=== PATIENT | male | born 1950 | race American Indian/Alaskan Native ===

== ENCOUNTER 2019-09-24 08:52 | Emergency (ER) | payer MEDICARE ==
[2019-09-24 09:08] VITALS: BP 144/95
--- NOTE | 2019-09-24 09:26 | XRay Report ---
CHEST 1 VIEW INDICATION / CLINICAL INFORMATION: MAIN: Chest Pain TODAY, HX COPD. COMPARISON: 05/12/2014 FINDINGS: SUPPORT DEVICES: None. HEART / MEDIASTINUM: No significant abnormality. LUNGS / PLEURA: No significant pulmonary or pleural abnormality. No pneumothorax. ADDITIONAL FINDINGS: No significant additional findings. IMPRESSION: 1. No significant change Signer Name: Chalino Hammond MD Signed: 09/24/2019 9:21 AM Workstation Name: [id number]
[2019-09-24 10:59] LABS: Basophils % (Auto) 0.7 % (0.0-1.8); Eosinophils # (Auto) 0.3 K/mm3 (0.0-0.4); Eosinophils % (Auto) 7.9 % (0.0-4.3); Hematocrit 47.3 % (35.5-45.6); Hemoglobin 16.1 gm/dl (11.8-15.2); Lymphocytes # (Auto) 0.8 K/mm3 (1.2-5.4); Lymphocytes % (Auto) 18.9 % (13.4-35.0); Mean Corpuscular HGB Conc 34 % (32-34); Mean Corpuscular Volume 94 fl (84-94); Monocytes # (Auto) 0.7 K/mm3 (0.0-0.8); Monocytes % (Auto) 15.1 % (0.0-7.3); Platelet Count 218 K/mm3 (140-440); Red Blood Count 5.01 M/mm3 (3.65-5.03)
[2019-09-24 11:24] LABS: BUN/Creatinine Ratio 10; Blood Urea Nitrogen 10 mg/dL (9-20); Calcium 9.8 mg/dL (8.4-10.2); Hemolysis Index 23
--- NOTE | 2019-09-24 11:36 | Emergency Department Report ---
ED Chest Pain HPI - General Chief Complaint: Chest Pain Stated Complaint: CP/HIV POS Time Seen by Provider: 09/24/19 11:29 Source: patient Mode of arrival: Ambulatory Limitations: No Limitations - History of Present Illness Initial Comments: Mr. Griggs is a 69-year-old male with history of HIV who presents with chest tightness since this morning. Chest tightness is mild without any radiation. Stephen like indigestion. Denies fever. Denies shortness of breath. No previous history of hypertension or heart disease. Chest pain has with spontaneously resolved. MD Complaint: chest pain -: Gradual, This morning Onset: during rest Pain Location: substernal Pain Radiation: none Severity: mild Quality: tightness Consistency: now resolved Improves With: nothing Worsens With: nothing - Related Data Previous Rx's Medication Instructions Recorded Last Taken Type Acetaminophen with Codeine 1 each PO Q8HR PRN #10 tablet 05/12/14 Unknown Rx [Acetaminophen-Codeine #4 TAB] levoFLOXacin [Levaquin TAB] 750 mg PO QDAY #4 tablet 05/12/14 Unknown Rx Allergies Allergy/AdvReac Type Severity Reaction Status Date / Time Penicillins Allergy Unknown Verified 05/12/14 11:20 sulfamethoxazole Allergy Unknown Verified 05/12/14 11:20 [From Bactrim] trimethoprim [From Bactrim] Allergy Unknown Verified 05/12/14 11:20 Heart Score - HEART Score History: Slightly suspicious EKG: Non-specific Age: > 65 Risk factors: 1-2 risk factors Troponin: < normal limit HEART Score: 4 ED Review of Systems ROS: Stated complaint: CP/HIV POS Other details as noted in HPI Comment: All other systems reviewed and negative Constitutional: denies: fever, malaise Respiratory: denies: cough, shortness of breath Cardiovascular: chest pain ED Past Medical Hx - Past Medical History Previous Medical History?: No Hx HIV: Yes - Surgical History Past Surgical History?: Yes Additional Surgical History: abdominal surgery - Social History Smoking Status: Current Every Day Smoker Substance Use Type: Alcohol, Marijuana - Medications Home Medications: Home Medications Medication Instructions Recorded Confirmed Last Taken Type Acetaminophen with Codeine 1 each PO Q8HR PRN #10 tablet 05/12/14 Unknown Rx [Acetaminophen-Codeine #4 TAB] levoFLOXacin [Levaquin TAB] 750 mg PO QDAY #4 tablet 05/12/14 Unknown Rx ED Physical Exam - General Limitations: No Limitations General appearance: alert, in no apparent distress - Head Head exam: Present: atraumatic, normocephalic - Eye Eye exam: Present: normal appearance - ENT ENT exam: Present: mucous membranes moist - Neck Neck exam: Present: normal inspection, full ROM - Respiratory Respiratory exam: Present: normal lung sounds bilaterally. Absent: respiratory distress, wheezes, rales, rhonchi - Cardiovascular Cardiovascular Exam: Present: regular rate, normal rhythm, normal heart sounds. Absent: systolic murmur, diastolic murmur, rubs, gallop - GI/Abdominal GI/Abdominal exam: Present: soft, normal bowel sounds. Absent: distended, tenderness, guarding, rebound - Rectal Rectal exam: Present: deferred - Extremities Exam Extremities exam: Present: normal inspection - Back Exam Back exam: Present: normal inspection - Neurological Exam Neurological exam: Present: alert, oriented X3 - Psychiatric Psychiatric exam: Present: normal affect, normal mood - Skin Skin exam: Present: warm, dry, intact, normal color. Absent: rash ED Course Vital Signs 09/24/19 09:05 Temperature 97.9 F Pulse Rate 78 Respiratory 20 Rate Blood Pressure 144/95 O2 Sat by Pulse 95 Oximetry ED Medical Decision Making - Lab Data Result diagrams: 09/24/19 10:35 09/24/19 10:35 Laboratory Results - last 24 hr 09/24/19 09/24/19 10:35 10:35 WBC 4.3 L RBC 5.01 Hgb 16.1 H Hct 47.3 H MCV 94 MCH 32 MCHC 34 RDW 13.0 L Plt Count 218 Lymph % (Auto) 18.9 Summers % (Auto) 15.1 H Eos % (Auto) 7.9 H Baso % (Auto) 0.7 Lymph # 0.8 L Summers # 0.7 Eos # 0.3 Baso # 0.0 Seg Neutrophils % 57.4 Seg Neutrophils # 2.5 Sodium 139 Potassium 3.8 Chloride 99.3 Carbon Dioxide 23 Anion Gap 21 BUN 10 Creatinine 1.0 Estimated GFR > 60 BUN/Creatinine Ratio 10 Glucose 104 H Calcium 9.8 Troponin T < 0.010 - EKG Data 09/24/19 11:37 EKG obtained 0901 Normal sinus rhythm left axis deviation no ST elevation positive LVH - Radiology Data Radiology results: report reviewed Chest radiograph: No acute findings. - Medical Decision Making Mr. Griggs presents with chest pain. Only risk factor for ACS tobacco abuse. I do not suspect acute coronary syndrome PE. 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 Critical care attestation.: If time is entered above; I have spent that time in minutes in the direct care of this critically ill patient, excluding procedure time. ED Disposition Clinical Impression: Chest pain Disposition: DC-01 TO HOME OR SELFCARE Is pt being admited?: No Does the pt Need Aspirin: No Condition: Stable Instructions: Chest Pain (ED) Referrals: REBECCA WALLACE [Other] - 3-5 Days SHANICE MARTINEZ MD [Staff Physician] - 3-5 Days
== END 2019-09-24 11:44 | disposition home or self-care (01) ==
LOC: ED 08:52
DX: R07.89 Other chest pain (principal); K30 Functional dyspepsia; F17.200 Nicotine dependence, unspecified, uncomplicated; F12.10 Cannabis abuse, uncomplicated; Z21 Asymptomatic human immunodeficiency virus [HIV] infection status; Z98.890 Other specified postprocedural states; Z79.899 Other long term (current) drug therapy; Z88.0 Allergy status to penicillin; Z88.8 Allergy status to other drugs, medicaments and biological substances
CPT/HCPCS: 36415; 71045; 80048; 84484; 85025; 93005; 93010